=== PATIENT | female | born 1985 | race Caucasian/White ===

== ENCOUNTER 2016-05-27 17:29 | Emergency (ER) | payer OTHER ==
[~2016-05-27] VITALS: Ht 165.1 cm; Wt 70.0 kg
[~2016-05-27 17:29] MED LIST: TRI-TAB PO
[2016-05-27 17:32] VITALS: BP 149/93; PULSE 76; RESP 16; TEMP 97.6; O2SAT 95
[2016-05-28] MEDS ORDERED: CYCL1TAB29 PO (15:34)
[2016-05-28] MEDS ORDERED: IBUP-232 PO (15:34)
[2016-07-26] MEDS ORDERED: TRI-TAB PO (16:45)
[2016-08-01] MEDS ORDERED: TRI-TAB PO (16:53)
== END 2016-05-27 22:05 | disposition left against medical advice (07) ==
LOC: NED 17:29
DX: R07.89 Other chest pain (principal)
CPT/HCPCS: 99281

== ENCOUNTER 2017-08-21 11:23 | Emergency (ER) | payer MEDICAID, OTHER ==
[~2017-08-21 11:23] MED LIST changes: +CYCL10TA PO; +IBUP-232 PO
--- NOTE | 2017-08-21 11:43 | PD ---
HPI Chief Complaint: Cold / Flu Symptoms Time Seen by Provider: 11:35 Travel History International Travel<30 days: No Contact w/Intl Traveler<30days: No History of Present Illness HPI 31-year-old female presents emergency department with positive exposure to influenza. Patient states she has had flulike symptoms for the last 3 days. She complains of body aches, fever, chest congestion and cough. Her cough is nonproductive. She denies wheezing. No nausea vomiting or diarrhea. She has generalized body pains. Pain is 6 out of 10. She has been taking [id number] flu medicine without improvement. She has no known drug allergies PFSH Past Medical History Medical History: Denies Significant Hx Cancer: No Cardiovascular Problems: No Diminished Hearing: No Endocrine: No Immune Disorder: No Musculoskeletal: No Neurologic: No Psychiatric: No Reproductive: No Respiratory: No Ulcer: Yes : 3 Para: 1 Miscarriage: 1 Dilation and Curettage (D&C): Yes Past Surgical History Other Surgery: No Social History Alcohol Use: Yes Tobacco Use: No Substance Use: No Allergies-Medications (Allergen,Severity, Reaction): Coded Allergies: No Known Allergies (Verified , 08/28/16) Reported Meds & Prescriptions Reported Meds & Active Scripts Active Tri-Sprintec (Norgestimate-Ethinyl Estradiol) 0.18/0.215/0.25 Mg-35 Mcg Tab 1 Tab PO DAILY Ibuprofen 600 Mg Tab 600 Mg PO Q6H PRN Flexeril (Cyclobenzaprine HCl) 10 Mg Tab 10 Mg PO TID Review of Systems Except as stated in HPI: all other systems reviewed are Neg General / Constitutional: Positive: Fever, Chills Eyes: No: Visual changes HENT: Positive: Headaches, Sore Throat, Rhinitis, Rhinorrhea, Congestion, No: Vertigo, Lightheadedness, Nosebleed, Neck Stiffness, Neck Pain, Dental Difficulties, Earache Cardiovascular: No: Chest Pain or Discomfort Respiratory: Positive: Cough, No: Shortness of Breath, Wheezing, Sneezing Gastrointestinal: No: Nausea, Vomiting, Diarrhea, Abdominal Pain Genitourinary: No: Dysuria Musculoskeletal: No: Pain Skin: No Rash Neurologic: No: Weakness Psychiatric: No: Depression Endocrine: No: Polydipsia Hematologic/Lymphatic: No: Easy Bruising Physical Exam Narrative GENERAL: Patient appears ill but not septic. SKIN: Warm and dry. Decreased pallor. Normal turgor. HEAD: Atraumatic. Normocephalic. No sinus tenderness EYES: Pupils equal and round. No scleral icterus. No injection or drainage. ENT: No nasal bleeding. Mucous membranes pink and moist. TMs are clear bilaterally. Patient has clear rhinitis. Posterior pharynx is unremarkable. Airways patent. NECK: Trachea midline. Supple and nontender without lymphadenopathy CARDIOVASCULAR: Regular rate and rhythm. RESPIRATORY: No accessory muscle use. Clear to auscultation. Breath sounds equal bilaterally. GASTROINTESTINAL: Abdomen soft, non-tender, nondistended. Hepatic and splenic margins not palpable. MUSCULOSKELETAL: Extremities without clubbing, cyanosis, or edema. No obvious deformities. NEUROLOGICAL: Awake and alert. No obvious cranial nerve deficits. Motor grossly within normal limits. Five out of 5 muscle strength in the arms and legs. Normal speech. PSYCHIATRIC: Appropriate mood and affect; insight and judgment normal. MDM Medical Decision Making Medical Screen Exam Complete: Yes Emergency Medical Condition: Yes Differential Diagnosis Upper respiratory infection. Cough. Influenza. Narrative Course Patient will be treated with Tamiflu 75 mg twice daily for 5 days. Patient is to rest and push fluids. Patient can take [id number] cough and cold meds as needed. Patient to follow with primary care physician as needed Diagnosis Primary Impression: Influenza A Referrals: Primary Care Physician Patient Instructions: General Instructions, H1N1 Influenza (ED) Additional Instructions: Patient will be treated with Tamiflu 75 mg twice daily for 5 days. Patient is to rest and push fluids. Patient can take [id number] cough and cold meds as needed. Patient to follow with primary care physician as needed Med/Other Pt SpecificInfo: Prescription(s) given Disposition: DISCHARGE HOME Condition: Stable Jayjay Rosa Aug 21, 2017 11:43
[2017-08-21] MEDS ORDERED: OSEL75 PO (11:44)
[2017-08-21 11:53] VITALS: BP 124/87; TEMP 99; O2SAT 99
== END 2017-08-21 12:12 | disposition home or self-care (01) ==
LOC: NEPA 11:23
DX: J10.1 Influenza due to other identified influenza virus with other respiratory manifestations (principal)
CPT/HCPCS: 99283